=== PATIENT | female | born 1965 | race Caucasian/White ===

== ENCOUNTER → 2024-02-19 12:28 | Outpatient (REF) | payer OTHER, SELFPAY | LOC: HWRAD 12:28 | PROVIDERS: ATTENDING PHYSICIAN Family Medicine | DX: Z72.0 Tobacco use (principal); M54.2 Cervicalgia; M54.12 Radiculopathy, cervical region | CPT/HCPCS: 71271; 72050 ==

== ENCOUNTER → 2024-03-02 17:54 | Outpatient (REF) | payer OTHER, SELFPAY | LOC: PAVMRI 17:54 | PROVIDERS: ATTENDING PHYSICIAN Pain Medicine Interventional Pain Medicine; FAMILY PHYSICIAN Family Medicine | DX: M54.12 Radiculopathy, cervical region (principal) | CPT/HCPCS: 72141 ==

== ENCOUNTER → 2024-04-07 10:13 | Outpatient (REF) | payer OTHER, SELFPAY | LOC: HWLAB 10:13 | PROVIDERS: ATTENDING PHYSICIAN Physician Assistant Medical | DX: J06.9 Acute upper respiratory infection, unspecified (principal) | CPT/HCPCS: 71046 ==